=== PATIENT | male | born 1975 | race Caucasian/White ===

== ENCOUNTER 2016-09-03 09:24 | Emergency (ER) | payer SELFPAY ==
[~2016-09-03] VITALS: Ht 165.1 cm; Wt 100.0 kg
[~2016-09-03 09:24] MED LIST: FAMO20TA18 PO
[2016-09-03 09:39] VITALS: Ht 165.1 cm; Wt 100.0 kg
[2016-09-03] MEDS ORDERED: SOD CHLORIDE 0.9% 1,000 ML IV STA (10:16)
[2016-09-03] MEDS ORDERED: ONDANSETRON 4 MG INJ IV STA (10:16)
--- NOTE | 2016-09-03 10:40 | ERD ---
ER Documentation Chief Complaint Date/Time DATE: 09/03/16 TIME: 10:39 Chief Complaint Pt with AP, vomiting and diarrhea X 1 week. HPI Patient is a 41-year-old male with a past medical history of gastritis who presents to the ED with nonbloody non-bilious emesis and nonbloody nonblack or tarry diarrhea for the last week. He denies recent travel, recent surgeries or change in food. He states that his symptoms come and go. He states that he does not have focal pain on his abdomen. Denies dysuria. Denies back pain. Denies fever or chills. Denies headache or dizziness, neck pain or neck stiffness. ROS All systems reviewed and are negative except as per history of present illness. Medications Home Meds Active Scripts Electrolyte,Oral (Pedialyte) 1,000 Ml Solution, 100 ML PO Q6 Y for VOMITTING for 14 Days, ML Prov:JAMARI SAUCEDO PA-C 09/03/16 Ondansetron (Ondansetron Odt) 4 Mg Tab.rapdis, 4 MG PO Q6H Y for NAUSEA AND/OR VOMITING, #20 TAB Prov:JAMARI SAUCEDO PA-C 09/03/16 Famotidine* (Famotidine*) 20 Mg Tablet, 20 MG PO BID, #60 TAB Prov:EMILY POP DO 12/29/14 Allergies Allergies: Coded Allergies: No Known Allergy (Unverified , 12/29/14) PMhx/Soc Medical and Surgical Hx: pt denies Medical Hx, pt denies Surgical Hx History of Surgery: No Anesthesia Reaction: No Hx Neurological Disorder: No Hx Respiratory Disorders: No Hx Cardiac Disorders: No Hx Psychiatric Problems: No Hx Miscellaneous Medical Probl: Yes (Gastritis) Hx Alcohol Use: No Hx Substance Use: Yes (Socially) Hx Tobacco Use: Yes (Marijuana every other day) Smoking Status: Never smoker Physical Exam Vitals Vital Signs Date Time Temp Pulse Resp B/P Pulse Ox O2 Delivery O2 Flow Rate FiO2 09/03/16 09:39 97.9 86 20 155/82 97 Physical Exam GENERAL: Well-developed, well-nourished male. Appears in no acute distress. HEAD: Normocephalic, atraumatic. EYES: Pupils are equally reactive bilaterally. EOMs grossly intact. No conjunctival erythema. ENT: Moist mucous membranes. No uvula deviation. No kissing tonsils. No exudates. NECK: Supple. No lymphadenopathy or thyromegaly. No meningismus. negative kernig. negative brudinski. LUNG: Clear to auscultation bilaterally. No rhonchi, wheezing, rales or coarse breath sounds. HEART: Regular rate and rhythm. No murmurs, rubs or gallops. ABDOMEN: No scars, ecchymosis or rashes noted. Soft, nontender, and nondistended. Positive bowel sounds in all four quadrants. No rebound tenderness , no guarding. (-) McBurneys point tenderness. No CVA tenderness. BACK: No midline tenderness. Extremities: Equal pulses bilaterally. No peripheral clubbing, cyanosis or edema. No unilateral leg swelling. NEUROLOGIC: Alert and oriented. Moving all four extremities. 5/5 strength in all extremities. Normal speech. Steady gait. SKIN: Normal color. Warm and dry. No rashes or lesions. Capillary refill < 2 seconds Result Diagram: 09/03/16 1028 09/03/16 1028 Results 24 hrs Laboratory Tests Test 09/03/16 10:28 09/03/16 11:40 White Blood Count 13.210^3/ul Red Blood Count 5.4410^6/ul Hemoglobin 16.0g/dl Hematocrit 45.3% Mean Corpuscular Volume 83.3fl Mean Corpuscular Hemoglobin 29.4pg Mean Corpuscular Hemoglobin Concent 35.3g/dl Red Cell Distribution Width 12.3% Platelet Count 81890^3/UL Mean Platelet Volume 10.8fl Neutrophils % 68.8% Lymphocytes % 19.9% Monocytes % 8.6% Eosinophils % 2.0% Basophils % 0.2% Nucleated Red Blood Cells % 0.2/100WBC Neutrophils # 9.110^3/ul Lymphocytes # 2.610^3/ul Monocytes # 1.110^3/ul Eosinophils # 0.310^3/ul Basophils # 0.010^3/ul Nucleated Red Blood Cells # 0.010^3/ul Sodium Level 145mmol/L Potassium Level 2.9mmol/L Chloride Level 103mmol/L Carbon Dioxide Level 23mmol/L Anion Gap 22 Blood Urea Nitrogen 14mg/dl Creatinine 0.84mg/dl Glucose Level 105mg/dl Calcium Level 9.2mg/dl Total Bilirubin 1.1mg/dl Direct Bilirubin 0.00mg/dl Indirect Bilirubin 1.1mg/dl Aspartate Amino Transf (AST/SGOT) 23IU/L Alanine Aminotransferase (ALT/SGPT) 47IU/L Alkaline Phosphatase 85IU/L Total Protein 8.2g/dl Albumin 4.6g/dl Globulin 3.60g/dl Albumin/Globulin Ratio 1.27 Lipase 101U/L Urine Color YELLOW Urine Clarity CLEAR Urine pH 5.5 Urine Specific [place] 1.025 Urine Ketones NEGATIVE Urine Nitrite NEGATIVE Urine Bilirubin NEGATIVE Urine Urobilinogen 1.0 E.U./dL Urine Leukocyte Esterase NEGATIVE Urine Microscopic RBC Pending Urine Microscopic WBC Pending Urine Hemoglobin NEGATIVE Urine Glucose NEGATIVE% Urine Total Protein 1+ Current Medications Medications (Trade) Dose Ordered Sig/Cristobal Route PRN Reason Start Time Stop Time Status Last Admin Dose Admin Sodium Chloride (NS) 1,000 ml @ 1,000 mls/hr Q1H STAT IV 09/03/16 10:16 09/03/16 11:15 DC 09/03/16 10:25 Ondansetron HCl (Zofran Inj) 4 mg ONCE STAT IV 09/03/16 10:16 09/03/16 10:17 DC 09/03/16 10:25 Potassium Chloride (Klor-Con 20) 40 meq ONCE STAT PO 09/03/16 11:27 09/03/16 11:29 DC 09/03/16 11:33 Procedures/MDM ER COURSE: I kept the patient and/or family informed of laboratory and diagnostic imaging results throughout the emergency room course. MEDICATIONS: Fluids, Zofran. Tolerated well with no adverse reaction. Stated improvement in symptoms. LAB INTERPRETATION: CBC showed no evidence of systemic infection or severe anemia. CMP showed no evidence of severe acidosis, alkalosis, renal failure, or liver disease. Lipase showed no evidence of acute pancreatitis. UA showed no evidence of leukocytes, nitrites or hematuria. His potassium was slightly decreased to 2.9. MEDICAL DECISION MAKING: This is a 41-year-old male who presents with nausea, vomiting, diarrhea on and off 1 week. Vital signs were reviewed. Patient is afebrile. Patient is not hypoxic. Patient is not toxic or ill-appearing. Patient did not have abdominal pain upon examination. I did discuss a possible CT scan and risk versus benefits were discussed with patient. Patient completely refuses CT scan and did not want further imaging. His blood work did show slightly elevated white count which is likely related to stress reaction. His potassium was decreased to 2.9. I consulted with my supervising physician, Dr. Sainz who advised to add 40 mEq of k-dur. I reexamined patient and he stated improvement in symptoms and was ready to be discharged. His decrease in potassium is likely related to the vomiting and diarrhea. Patient stated that 15 years ago he did have similar situation due to vomiting and diarrhea. Patient had no other complaints and stated improvement in symptoms. Low suspicion for ACS, AAA , perforated ulcer, bowel obstruction, cholecystitis, choledocholithiasis, cholangitis, pancreatitis, hepatic abscess, appendicitis, diverticulitis, gastroenteritis, hepatitis, peptic ulcer disease, arrhythmias. Low suspicion for ACS, PE, AAA, dissection, DVT DISCHARGE: At this time, patient is stable for discharge and outpatient management with no new complaints during the ER course. Patient was sent home with Reg Sloan and to follow-up with primary care in 1-2 days.. Patient will be discharged home with instructions to recheck for new or worsening symptoms such as fever, nausea, weakness, LOC and to follow up with primary care in the next 1-2 days. Patient was advised to return to the ER for any new or worsening symptoms. Plan was discussed and patient and/or family understands and agrees. Home instructions were given. Departure Diagnosis: Primary Impression: Nausea vomiting and diarrhea Condition: Stable JAMARI SAUCEDO PA-C September 03, 2016 10:40
[2016-09-03 10:48] LABS: ADD SCAN DIFF NO
[2016-09-03 10:51] LABS: BASOPHILS % 0.2 % (0.0-2.0); EOSINOPHILS # 0.3 10^3/ul (0.0-0.5); HEMATOCRIT 45.3 % (42.0-52.0); LYMPHOCYTES # 2.6 10^3/ul (0.8-2.9); LYMPHOCYTES % 19.9 % (15.0-51.0); MEAN CORPUSCULAR HEMOGLOBIN 29.4 pg (29.0-33.0); MEAN CORPUSCULAR HGB CONC 35.3 g/dl (32.0-37.0); MEAN CORPUSCULAR VOLUME 83.3 fl (82.0-101.0); MEAN PLATELET VOLUME 10.8 fl (7.4-10.4); MONOCYTE # 1.1 10^3/ul (0.3-0.9); MONOCYTES % 8.6 % (0.0-11.0); NEUTROPHIL # 9.1 10^3/ul (1.6-7.5); NEUTROPHILS % 68.8 % (39.0-77.0); NUCLEATED RED BLOOD CELLS% 0.2 /100WBC (0.0-0.0); PLATELET COUNT 203 10^3/UL (140-415); RED BLOOD COUNT 5.44 10^6/ul (4.70-6.10); RED CELL DISTRIBUTION WIDTH 12.3 % (11.5-14.5); WHITE BLOOD COUNT 13.2 10^3/ul (4.8-10.8)
[2016-09-03 11:02] LABS: ALBUMIN 4.6 g/dl (3.3-4.9)
[2016-09-03 11:05] LABS: ALBUMIN/GLOBULIN RATIO 1.27; BILIRUBIN,INDIRECT 1.1 mg/dl (0-1.1); BILIRUBIN,TOTAL 1.1 mg/dl (0.2-1.3); CREATININE 0.84 mg/dl (0.61-1.24); TOTAL PROTEIN 8.2 g/dl (6.1-8.1)
[2016-09-03 11:06] LABS: CALCIUM 9.2 mg/dl (8.4-10.2)
[2016-09-03 11:09] LABS: POTASSIUM 2.9 mmol/L (3.5-5.1)
[2016-09-03] MEDS ORDERED: POTASSIUM CHLORIDE (SR) 20 MEQ TAB PO STA (11:27)
[2016-09-03 12:23] LABS: ADD UMIC YES; URINE BILIRUBIN (Dip) NEGATIVE (NEGATIVE); URINE BLOOD (Dip) NEGATIVE (NEGATIVE); URINE COLOR YELLOW (YELLOW); URINE GLUCOSE (Dip) NEGATIVE (NEGATIVE); URINE KETONES (Dip) NEGATIVE (NEGATIVE); URINE LEUKOCYTE ESTERASE (Dip) NEGATIVE (NEGATIVE); URINE NITRITE (Dip) NEGATIVE (NEGATIVE); URINE TOTAL PROTEIN (Dip) 1+ (NEGATIVE); URINE UROBILINOGEN (Dip) 1.0 E.U./dL (0.1-1.0)
[2016-09-03] MEDS ORDERED: ONDA4TAB14 PO (12:28)
[2016-09-03] MEDS ORDERED: ELEC100080 PO (12:29)
[2016-09-03 12:36] VITALS: BP 128/51; PULSE 81; RESP 20; TEMP 98.3
[2016-09-03 12:41] LABS: MUCUS,URINE MODERATE; URINE RBCS NONE SEEN /HPF (0)
== END 2016-09-03 12:38 | disposition home or self-care (01) ==
LOC: FTE 09:24
DX: R11.2 Nausea with vomiting, unspecified (principal); R19.7 Diarrhea, unspecified
CPT/HCPCS: 36415; 80053; 81001; 83690; 85025; 96374; 99284; J2405; J7030; 81003